=== PATIENT | female | born 1980 | race Caucasian/White ===

== ENCOUNTER 2022-08-27 10:02 | Outpatient (CLI) | payer OTHER, SELFPAY ==
--- NOTE | 2022-08-27 10:15 | CRLHL7_ITS ---
For Patients: As a result of the Century Cures Act, medical imaging exams and procedure reports are released immediately into your electronic medical record. You may view this report before your referring provider. If you have questions, please contact your health care provider. BILATERAL SCREENING MAMMOGRAM WITH COMPUTER-AIDED DETECTION AND TOMOSYNTHESIS TECHNIQUE: CC and MLO views were obtained. These mammographic images have been obtained using full-field digital technique. These mammographic images were interpreted with the benefit of computer-aided detection. Breast Tomosynthesis was used in this interpretation. COMPARISON FILM: 08/26/21, 07/30/20, 06/29/19. FINDINGS: The breasts are heterogeneously dense, which may obscure small masses IMPRESSION: There is no radiographic evidence for malignancy. ASSESSMENT: BI-RADS Category 1: Negative RECOMMENDATION: Routine screening mammogram in 1 year. A lay language report of this examination will be provided to the patient. Eugenio Rae M.D. Diagnostic Radiologist [email or web address] Transcribed: 2:03 pm DW/Dictated by: Eugenio Rae MD @ 08/27/2022 11:49:00 AM (Electronically Signed)
== END 2022-08-27 10:03 | disposition home or self-care (01) ==
LOC: MAMMO 10:03
PROVIDERS: PCP Emergency Medicine; Visit Provider Emergency Medicine
DX: Z12.31 Encounter for screening mammogram for malignant neoplasm of breast (principal); R92.2 Inconclusive mammogram
CPT/HCPCS: 77063; 77067

== ENCOUNTER 2023-02-15 09:15 | Outpatient (CLI) | payer OTHER, SELFPAY | END 2023-02-15 09:16 | disposition home or self-care (01) | PROVIDERS: PCP Emergency Medicine; Visit Provider Emergency Medicine | DX: Z00.00 Encounter for general adult medical examination without abnormal findings (principal); E78.5 Hyperlipidemia, unspecified; F32.A Depression, unspecified | CPT/HCPCS: 80053; 80061 ==

== ENCOUNTER 2023-08-31 09:14 | Outpatient (CLI) | payer OTHER, SELFPAY ==
--- NOTE | 2023-08-31 09:15 | MM_ITS ---
Final Report Patient: KELSY CRUZ Facility:?[facility] Patient ID:?[id number] :?[id number] Study:?XRay Breast Bilateral 3D W/CAD-08/31/2023 10:39:59 AM Ordering Physician:Jessika Myers Final Report: BILATERAL SCREENING MAMMOGRAM WITH COMPUTER-AIDED DETECTION AND TOMOSYNTHESIS TECHNIQUE: CC and MLO views were obtained. These mammographic images have been obtained using full-field digital technique. These mammographic images were interpreted with the benefit of computer-aided detection. Breast Tomosynthesis was used in this interpretation. COMPARISON FILM: 08/27/22, 08/26/21, 07/30/20. FINDINGS: The breasts are heterogeneously dense, which may obscure small masses. IMPRESSION: There is no radiographic evidence for malignancy. ASSESSMENT: BI-RADS Category 1: Negative RECOMMENDATION: Routine screening mammogram in 1 year. A lay language report of this examination will be provided to the patient. Eugenio Rae M.D. Diagnostic Radiologist [email or web address] DSM/sp R& Transcribed: 4:12 p.m. SP/Dictated by: Eugenio Rae MD @ 09/01/2023 12:42:00 PM (Electronic Signature)
--- OUTSIDE RECORDS SUMMARY | 2023-08-31 09:25 | XMS_ITS | Clinical Summary ---
Author Name Unknown Organization [facility] Address [address] [place] [address] Care Team Providers Care [place] Operator Name Role Phone Unavailable Primary Care Provider Unavailabl e Source Comments You are receiving this document as you are listed as the primary care provider,follow-up provider, or the patient has been referred to you for consultation.This is in compliance with the Medicare and[facility] EHR Incentive Program,which states Providers who transition their patient to another setting of careor provider of care or refers their patient to another provider of care shouldprovide summary care record for each transition of care or referral. [facility] Allergies Active Allergy Reactions Criticality Noted Date Comments Sulfa Antibiotics Unknown 08/19/2021 Medications No known medications Family History Medical History Relation Name Comments Amblyopia/Strabismus Negative Family History Blindness Negative Family History Cataract Negative Family History Glaucoma Negative Family History Macular Degeneration Negative Family History Retinal Detachment Negative Family History Social History Tobacco Use Types Packs/Day Years Used Date Smoking Tobacco: Never Assessed Sex and Gender Information Value Date Recorded Sex Assigned at Not on file Gender Identity Not on file Sexual Orientation Not on file Plan of Treatment Health Maintenance Due Date Last Done Comments Cervical Cancer Screening Due 1980 Hep C Screening (Preventive Services) 1980 HIV Screening (Preventive Services) 1995 Adult Preventive Visit 1997 DTaP/Tdap/Td (1 - Tdap) 1998 HepB (1) 1998 COVID-19 Vaccine ( - 2022-2 4 season) 2023 Influenza (#1) 2023 Zoster/Shingles (1 of 2) 2029 HPV Vaccine Aged Out No longer eligi ble based on patient's age to complete this topic HepA Aged Out No longer eligi ble based on patient's age to complete this topic Hib Aged Out No longer eligi ble based on patient's age to complete this topic IPV (Polio) Aged Out No longer eligi ble based on patient's age to complete this topic MCV4 Aged Out No longer eligi ble based on patient's age to complete this topic Pneumococcal Aged Out No longer eligi ble based on patient's age to complete this topic
== END 2023-08-31 09:15 | disposition home or self-care (01) ==
PROVIDERS: PCP Emergency Medicine; Visit Provider Emergency Medicine
DX: Z12.31 Encounter for screening mammogram for malignant neoplasm of breast (principal); R92.2 Inconclusive mammogram
CPT/HCPCS: 77063; 77067

== ENCOUNTER 2024-02-17 08:31 | Outpatient (CLI) | payer OTHER, SELFPAY ==
--- OUTSIDE RECORDS SUMMARY | 2024-02-22 07:37 | XMS_ITS | Clinical Summary ---
Author Organization [facility] Address [address], [place] [address] Care Team Providers Care Service Center Assistant Name Role Phone Unavailable Primary Care Provider Unavailabl e Source Comments You are receiving this document as you are listed as the primary care provider,follow-up provider, or the patient has been referred to you for consultation.This is in compliance with the Medicare and[facility] E[facility] Incentive Program,which states Providers who transition their patient to another setting of careor provider of care or refers their patient to another provider of care shouldprovide summary care record for each transition of care or referral. [facility] Allergies Active Allergy Reactions Criticality Noted Date [...] 1980 Hep C Screening (Preventive Services) 1980 Mammogram 1979 HIV Screening (Preventive Services) 1995 Adult Preventive Visit 1997 DTaP/Tdap/Td (1 - Tdap) 1998 HepB (1) 1998 COVID-19 Vaccine (2022-2 4 season) 2023 Influenza (#1) 2024 Zoster/Shingles (1 of 2) 2029 HPV Vaccine [...]
== END 2024-02-17 08:32 | disposition home or self-care (01) ==
LOC: NFLDREF 02-22 07:36
PROVIDERS: PCP Emergency Medicine; Referring Provider Emergency Medicine; Visit Provider Emergency Medicine
DX: E78.2 Mixed hyperlipidemia (principal)
CPT/HCPCS: 80061

== ENCOUNTER 2024-05-25 08:43 | Outpatient (CLI) | payer OTHER, SELFPAY ==
--- OUTSIDE RECORDS SUMMARY | 2024-05-25 14:24 | XMS_ITS | Clinical Summary ---
Author Organization [facility] Address [address], [place] [address] Care Team Providers Care Animal Assisted Therapist Name Role Phone Unavailable Primary Care Provider Unavailabl e Source Comments You are receiving this document as you are listed as the primary care provider,follow-up provider, or the patient has been referred to you for consultation.This is in compliance with the Medicare and[facility]centive [facility],which states Providers who transition their patient to another setting of careor provider of care or refers their patient to another provider of care shouldprovide summary care record for each transition of care or referral. [employer] Allergies Active Allergy Reactions Criticality Noted Date [...] Done Comments Cervical Cancer Screening Due 1980 Colon Cancer Screening Plan Due 1980 Hep C Screening (Preventive Services) 1980 Mammogram 1980 HIV Screening (Preventive Services) 1995 Adult Preventive Visit 1997 DTaP/Tdap/Td (1 - Tdap) 1998 HepB (1) 1998 Cholesterol 02/28/2024 COVID-19 Vaccine (2023-2 5 season) 2024 Influenza (#1) 2024 Zoster/Shingles (1 of 2) [...] on patient's age to complete this topic RSV Aged Out No longer eligi ble based on patient's age to complete this topic MCV4 Aged Out No longer eligi ble based on patient's age to complete this topic Pneumococcal Aged Out No longer eligi ble based on patient's age to complete this topic
== END 2024-05-25 08:44 | disposition home or self-care (01) ==
LOC: NFLDREF 14:23
PROVIDERS: PCP Emergency Medicine; Referring Provider Emergency Medicine; Visit Provider Emergency Medicine
DX: E78.2 Mixed hyperlipidemia (principal)
CPT/HCPCS: 80061

== ENCOUNTER 2024-09-01 13:21 | Outpatient (CLI) | payer OTHER, SELFPAY ==
--- NOTE | 2024-09-01 13:20 | CRLHL7_ITS ---
For Patients: As a result of the Century Cures Act, medical imaging exams and procedure reports are released immediately into your electronic medical record. You may view this report before your referring provider. If you have questions, please contact your health care provider. BILATERAL SCREENING MAMMOGRAM WITH COMPUTER-AIDED DETECTION AND TOMOSYNTHESIS TECHNIQUE: CC and MLO views were obtained. These mammographic images have been obtained using full-field digital technique. These mammographic images were interpreted with the benefit of computer-aided detection. Breast Tomosynthesis was used in this interpretation. COMPARISON FILM: 08/31/23, 08/27/22, 08/26/20. FINDINGS: The breasts are extremely dense, which lowers the sensitivity of mammography. IMPRESSION: There is no radiographic evidence for malignancy. ASSESSMENT: BI-RADS Category 1: Negative RECOMMENDATION: Routine screening mammogram in 1 year. A lay language report of this examination will be provided to the patient. Eugenio Rae M.D. Diagnostic Radiologist [email or web address] SP/Dictated by: Eugenio Rae MD @ 09/06/2024 11:34:00 AM (Electronically Signed)
== END 2024-09-01 13:22 | disposition home or self-care (01) ==
LOC: MAMMO 13:21
PROVIDERS: PCP Emergency Medicine; Visit Provider Emergency Medicine
DX: Z12.31 Encounter for screening mammogram for malignant neoplasm of breast (principal); R92.343 Mammographic extreme density, bilateral breasts
CPT/HCPCS: 77063; 77067

== ENCOUNTER 2025-03-07 11:02 | Outpatient (CLI) | payer OTHER, SELFPAY ==
[2025-03-09 08:35] LABS: HPV Source Cervix
[2025-03-13 11:16] LABS: Pap Test Digital Imaging Done
== END 2025-03-07 11:03 | disposition home or self-care (01) ==
PROVIDERS: Visit Provider Registered Nurse
DX: R63.4 Abnormal weight loss (principal); E78.2 Mixed hyperlipidemia; R53.83 Other fatigue; Z12.4 Encounter for screening for malignant neoplasm of cervix; Z11.51 Encounter for screening for human papillomavirus (HPV)
CPT/HCPCS: 84443; 84450; 84460; 87624; 87625; 88141; 88142; 88175

== ENCOUNTER 2025-05-17 06:57 | Outpatient (CLI) | payer OTHER, SELFPAY ==
--- NOTE | 2025-05-17 09:16 | P.ANES_ITS ---
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
--- NOTE | 2025-05-17 09:16 | W.ANESCHARGE ---
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
== END 2025-05-17 06:58 | disposition home or self-care (01) ==
LOC: OP CLINIC 06:59
PROVIDERS: Visit Provider Surgery
DX: Z12.11 Encounter for screening for malignant neoplasm of colon (principal); D12.3 Benign neoplasm of transverse colon; K63.89 Other specified diseases of intestine; D12.7 Benign neoplasm of rectosigmoid junction
CPT/HCPCS: 00811; 00812; 45380; 45385; 88305; J2704